=== PATIENT | male | born 1985 | race Caucasian/White ===

== ENCOUNTER → 2017-11-09 | Outpatient (CLI) | payer OTHER ==
--- NOTE | 2017-11-09 20:42 | CT ---
EXAMINATION TYPE: CT abdomen w con DATE OF EXAM: 11/09/2017 COMPARISON: None HISTORY: ELEVATED LIVER ENZYMES CT DLP: 944.7 mGycm, Automated Exposure Control for Dose Reduction was Utilized. CONTRAST: CT scan of the abdomen is performed with oral and with IV Contrast, patient injected with 100 mL of I sovue 300. FINDINGS: LUNG BASES: No significant abnormality is appreciated. LIVER/GB: Liver is diffusely low dense relative to spleen suggesting diffuse fatty infiltration. This can be confirmed with ultrasound or noncontrast CT/MRI desired. Liver is overall normal in size. No worrisome solid or cystic mass or intrahepatic or extrahepatic ductal dilatation is identified. Gallb ladder is somewhat contracted otherwise unremarkable. PANCREAS: No significant abnormality is seen. SPLEEN: No significant abnormality is seen. ADRENALS: No significant abnormality is seen. KIDNEYS: Incidental accessory or 2 right-sided renal arteries, normal variant. BOWEL: The oral contrast reaches level of terminal ileum. There is no suspicious small or large bowel dilatation identified. A few scattered diverticula in the left colon are noted. LYMPH NODES: No greater than 1cm abdominal lymph nodes are appreciated. OSSEOUS STRUCTURES: No significant abnormality is seen. OTHER: No significant additional abnormality is seen. IMPRESSION: Probable diffuse fatty infiltration of liver.
== END | disposition home or self-care (01) ==
LOC: RADCTMAIN 16:44
PROVIDERS: ATTEND Family Medicine
DX: R74.8 Abnormal levels of other serum enzymes (principal); Z88.0 Allergy status to penicillin
CPT/HCPCS: 74160; Q9967